=== PATIENT | female | born 1980 | race American Indian/Alaskan Native ===

== ENCOUNTER 2018-08-31 16:51 | Emergency (ER) | payer OTHER ==
[2018-08-31 16:57] VITALS: BMI 32.8
--- NOTE | 2018-08-31 17:17 | ED PDOC ---
Arrival/HPI - General Historian: Patient - History of Present Illness Narrative History of Present Illness (Text): 08/31/18 17:11 Patient is a 38yo F with no significant PMH presenting to ED with chest pressure for 1 week. She reports intermittent pressure in the middle of her chest that is worse with laying down. She took tylenol at home which helped relieve her symptoms. She denies pain or radiation of the pressure, sweating, nausea, or palpitations. She has history of chest pain for the past year, which was worked up 2 months ago with CXR, stress test, EKG, and ECHO all of which resulted as negative. She denies fever, chills, abdominal pain, vomiting, diarrhea, constip ation, rashes, panic attacks. Time/Duration: 1 week Symptom Onset: Gradual Symptom Course: Intermittent Quality: Pressure Severity Level: 10 <Isacc Rodriguez - Last Filed: 08/31/18 19:11> <Ketan Petit - Last Filed: 08/31/18 19:50> - General Chief Complaint: Chest Pain Time Seen by Provider: 08/31/18 16:59 Past Medical History - Psychiatric Hx Substance Use: No <Isacc Rodriguez - Last Filed: 08/31/18 19:11> Family/Social History Family/Social History: No Known Family HX Smoking Status: Light Smoker < 10 Cigarettes Daily Hx Alcohol Use: No Hx Substance Use: No <Isacc Rodriguez - Last Filed: 08/31/18 19:11> Allergies/Home Meds <Isacc Rodriguez - Last Filed: 08/31/18 19:11> <Ketan Petit - Last Filed: 08/31/18 19:50> Allergies/Adverse Reactions: Allergies No Known Allergies Allergy (Verified 08/31/18 16:57) Home Medications: Home Meds Medication Instructions Recorded Confirmed No Known Home Med 08/31/18 08/31/18 Review of Systems - Review of Systems Constitutional: Normal. absent: Fevers Eyes: Normal ENT: Normal Respiratory: Normal. absent: SOB, Cough Cardiovascular: Other (chest pressure). absent: Chest Pain, Palpitations Gastrointestinal: Normal. absent: Abdominal Pain, Constipation, Diarrhea, Nausea, Vomiting Genitourinary Female: Normal. absent: Dysuria Musculoskeletal: Neck Pain (chronic) Skin: Normal Neurological: Normal Endocrine: Normal Hemo/Lymphatic: Normal Psychiatric: Normal. absent: Anxiety <Ahsan Rodriguezfrankotrisha - Last Filed: 08/31/18 19:11> Physical Exam Vital Signs Reviewed: Yes Temperature: Afebrile Blood Pressure: Normal Pulse: Regular Respiratory Rate: Normal Appearance: Positive for: Well-Appearing, Non-Toxic, Comfortable Pain Distress: None Mental Status: Positive for: Alert and Oriented X 3 - Systems Exam Head: Present: Atraumatic, Normocephalic Pupils: Present: PERRL Extroacular Muscles: Present: EOMI Conjunctiva: Present: Normal Mouth: Present: Moist Mucous Membranes Neck: Present: Normal Range of Motion Respiratory/Chest: Present: Clear to Auscultation, Good Air Exchange. No: Respiratory Distress, Accessory Muscle Use Cardiovascular: Present: Regular Rate and Rhythm, Normal S1, S2. No: Murmurs Abdomen: Present: Normal Bowel Sounds. No: Tenderness, Distention, Peritoneal Signs Upper Extremity: Present: Normal Inspection, Normal ROM. No: Cyanosis, Edema Lower Extremity: Present: Normal Inspection, Normal ROM. No: Edema Neurological: Present: GCS=15, CN II-XII Intact, Speech Normal, Motor Func Grossly Intact, Normal Sensory Function Skin: Present: Normal Color. No: Warm, Dry, Rashes Psychiatric: Present: Alert, Oriented x 3, Normal Insight, Normal Concentration <Isacc Rodriguez - Last Filed: 08/31/18 19:11> Vital Signs Temp Pulse Resp BP Pulse Ox 08/31/18 16:51 98.2 F 81 18 129/74 100 <Ketan Petit - Last Filed: 08/31/18 19:50> Medical Decision Making ED Course and Treatment: 08/31/18 17:21 Chest Pressure - EKG: NSR@79bpm - Labs - CXR - reassess 08/31/18 17:25 Heart Score 1, correlating with low risk of adverse cardiac event. Perc criteria 0, no further workup for PE necessary. Troponin negative Chest X-ray not showing any consolidations, fractures, or pneumothorax. Spoke with patient at length regarding nature and management of her symptoms, advised to follow up with emergency medicine medical director in 2 days and return to ED if symptoms worsen. Patient understands instructions and agreed. - RAD Interpretation Radiology Orders: 08/31/18 17:09 CHEST PORTABLE [RAD] Stat <Isacc Rodriguez - Last Filed: 08/31/18 19:11> ED Course and Treatment: 08/31/18 18:12 Patient Seen with Resident: In agreement with resident note which contains more details about the patient. Patient seen and evaluated with resident. Came up with plan and treatment together. 08/31/18 19:49 pt seen with resdient. atypical cp x 2 week trop neg.lower heart score perc neg. recent neg stress. stable for dc. - RAD Interpretation Radiology Orders: 08/31/18 17:09 CHEST PORTABLE [RAD] Stat <Ketan Petit - Last Filed: 08/31/18 19:50> - PA / CRIMINAL JUDGE / Resident Statement / has reviewed & agrees with the documentation as recorded. / has examined the patient and agrees with the treatment plan. <Ketan Petit - Last Filed: 08/31/18 19:50> Disposition/Present on Arrival - Present on Arrival Any Indicators Present on Arrival: No History of DVT/PE: No History of Uncontrolled Diabetes: No Urinary Catheter: No History of Decub. Ulcer: No History Surgical Site Infection Following: None - Disposition Have Diagnosis and Disposition been Completed?: Yes Disposition Time: 19:13 <Isacc Rodriguez - Last Filed: 08/31/18 19:11> <Ketan Petit - Last Filed: 08/31/18 19:50> - Disposition Diagnosis: Chest pressure Disposition: HOME/ ROUTINE Condition: STABLE Discharge Instructions (ExitCare): Chest Pain That Is Not Caused by the Heart (DC), Quitting Smoking Additional Instructions: Please follow up with your emergency medicine medical director within 2 days. Please follow up with your primary care doctor within 2 days. If symptoms worsen, return to the emergency department. Referrals: [facility] at [facility] [place] [Outside] - Follow up with primary Sandra Cortez [Other] - Follow up with primary Forms: [employer] ([place])
[2018-08-31 17:56] VITALS: PULSE 81; RESP 18; TEMP 98.2
[2018-08-31 18:18] LABS: BASO # 0.03 {null, K/mm3} (0.0-2.0); BASO % 0.3 % (0.0-3.0); EOS # 0.2 (0.0-0.7); EOS % 2.1 % (1.5-5.0); HEMOGLOBIN 13.6 g/dL (12.0-16.0); LYMPH # 2.8 (1.2-3.4); LYMPH % 30.8 % (22.0-35.0); MEAN CELL VOLUME 91.4 fl (80.0-105.0); MEAN CORPUSCULAR HEMOGLOBIN 31.6 pg (25.0-35.0); MEAN CORPUSCULAR HGB CONC 34.5 g/dl (31.0-37.0); MEAN PLATELET VOLUME 9.4 fl (7.0-11.0); MONO # 0.8 (0.1-0.6); MONO % 8.7 % (1.0-6.0); RBC 4.31 {null, 10^6/uL} (3.5-6.1); RED CELL DISTRIBUTION WIDTH 13.1 % (11.5-14.5); WHITE BLOOD COUNT 9.2 {null, 10^3/uL} (4.5-11.0)
[2018-08-31 18:26] LABS: INR 0.96; PROTHROMBIN TIME 10.7 SECONDS (9.4-12.5)
[2018-08-31 18:27] LABS: ALB/GLOB RATIO 1.4 (1.1-1.8); ALBUMIN 4.1 g/dL (3.0-4.8); ALT/SGPT 15 U/L (7-56); AST/SGOT 27 U/L (14-36); BLOOD UREA NITROGEN 12 mg/dL (7-21); CALCIUM 10.1 mg/dL (8.4-10.5); GFR NON-AFRICAN AMERICAN > 60
[2018-08-31 18:38] LABS: TROPONIN I < 0.01 ng/mL
[2018-08-31 19:25] VITALS: BP 128/72; O2SAT 97
[2018-08-31 19:40] LABS: HCG,QUALITATIVE URINE NEGATIVE (NEGATIVE); URINE APPEARANCE CLEAR (CLEAR); URINE BILIRUBIN NEGATIVE (NEGATIVE); URINE BLOOD NEGATIVE (NEGATIVE); URINE COLOR LIGHT YELLOW (YELLOW); URINE GLUCOSE (UA) NEGATIVE (NEGATIVE); URINE LEUKOCYTE ESTERASE NEGATIVE Leu/uL (NEGATIVE); URINE PROTEIN NEGATIVE mg/dL (<30 mg/dL)
--- NOTE | 2018-09-01 08:34 | RAD ---
Date of service: 08/31/2018 HISTORY: chest pain COMPARISON: No prior. TECHNIQUE: 1 view obtained. FINDINGS: LUNGS: No active pulmonary disease. PLEURA: No significant pleural effusion identified, no pneumothorax apparent. CARDIOVASCULAR: No aortic atherosclerotic calcification present. Normal cardiac size. No pulmonary vascular congestion. OSSEOUS STRUCTURES: No significant abnormalities. VISUALIZED UPPER ABDOMEN: Normal. OTHER FINDINGS: None. IMPRESSION: No acute cardiopulmonary disease appreciated.
--- NOTE | 2018-09-01 09:20 | CARD ---
APPROVED REPORT Date of service: 08/31/2018 EKG Measurement Heart [id number] <Conclusion> Normal sinus rhythm with sinus arrhythmia Normal ECG
== END 2018-08-31 19:28 | disposition home or self-care (01) ==
LOC: ED 16:51
DX: R07.9 Chest pain, unspecified (principal)